=== PATIENT | male | born 1970 | race Two or more races ===

== ENCOUNTER 2018-03-18 07:01 | Emergency (ER) | payer OTHER ==
[~2018-03-18] VITALS: Ht 170.2 cm; Wt 96.6 kg
[~2018-03-18 07:01] MED LIST: ASPIRIN EC81 MG; CELECOXIB200 MG; FAMOTIDINE20 MG; GABAPENTIN300 MG; OMEPRAZOLE; RANITIDINE HCL300 MG
== END 2018-03-18 14:20 | disposition home or self-care (01) ==
LOC: ER 07:01
DX: M25.562 Pain in left knee (principal); M25.561 Pain in right knee; M25.572 Pain in left ankle and joints of left foot; M25.571 Pain in right ankle and joints of right foot

== ENCOUNTER 2018-03-25 11:48 | Outpatient (CLI) | payer OTHER | END 2018-03-25 12:45 | disposition home or self-care (01) | LOC: RAD 11:48 | DX: M17.0 Bilateral primary osteoarthritis of knee (principal) ==

== ENCOUNTER 2018-04-06 09:29 | Outpatient (CLI) | payer OTHER | END 2018-04-06 09:41 | disposition home or self-care (01) | LOC: MRI 09:29 | DX: M17.12 Unilateral primary osteoarthritis, left knee (principal); M23.222 Derangement of posterior horn of medial meniscus due to old tear or injury, left knee; M23.312 Other meniscus derangements, anterior horn of medial meniscus, left knee | CPT/HCPCS: 73721 ==

== ENCOUNTER 2018-07-16 10:10 | Outpatient (CLI) | payer OTHER | END 2018-07-16 10:19 | disposition home or self-care (01) | LOC: RAD 10:10 | DX: M17.12 Unilateral primary osteoarthritis, left knee (principal) ==

== ENCOUNTER 2018-08-18 07:51 | Outpatient (CLI) | payer OTHER | END 2018-08-18 10:55 | disposition home or self-care (01) | LOC: RAD 07:51 | DX: M54.5 Low back pain (principal); M54.16 Radiculopathy, lumbar region ==

== ENCOUNTER 2018-09-07 07:22 | Outpatient (CLI) | payer OTHER | END 2018-09-07 07:27 | disposition home or self-care (01) | LOC: RAD 07:22 | DX: M25.551 Pain in right hip (principal); M25.552 Pain in left hip ==

== ENCOUNTER 2020-11-29 09:51 | Outpatient (CLI) | payer OTHER | END 2020-11-29 09:59 | disposition home or self-care (01) | LOC: RAD 09:51 → EDBD 09:51 → RAD 09:59 | PROVIDERS: ATTEND General Practice | DX: R07.89 Other chest pain (principal); S23.41XA Sprain of ribs, initial encounter; Y99.8 Other external cause status ==

== ENCOUNTER → 2021-03-21 14:42 | Outpatient (CLI) | payer OTHER | END | disposition home or self-care (01) | LOC: RAD → EDBD 14:42 → RAD 14:42 | DX: M54.2 Cervicalgia (principal); M54.5 Low back pain; M99.02 Segmental and somatic dysfunction of thoracic region | CPT/HCPCS: 72148 ==

== ENCOUNTER 2021-04-22 10:24 | Outpatient (CLI) | payer OTHER | END 2021-04-22 10:34 | disposition home or self-care (01) | LOC: RAD 10:24 | PROVIDERS: ATTEND Student in an Organized Health Care Education/Training Program | DX: M51.37 Other intervertebral disc degeneration, lumbosacral region (principal); M54.5 Low back pain; M51.36 Other intervertebral disc degeneration, lumbar region; M47.812 Spondylosis without myelopathy or radiculopathy, cervical region; M54.12 Radiculopathy, cervical region ==

== ENCOUNTER → 2021-04-24 | Outpatient (CLI) | payer OTHER | END | disposition home or self-care (01) | LOC: MRI 08:31 | PROVIDERS: ATTEND Student in an Organized Health Care Education/Training Program | DX: M50.223 Other cervical disc displacement at C6-C7 level (principal); M47.812 Spondylosis without myelopathy or radiculopathy, cervical region; M47.22 Other spondylosis with radiculopathy, cervical region | CPT/HCPCS: 72141 ==

== ENCOUNTER 2022-04-22 07:40 | Outpatient (CLI) | payer OTHER | END 2022-04-22 07:45 | disposition home or self-care (01) | LOC: SONOGRAMA 07:40 | PROVIDERS: ATTEND Specialist/Technologist, Other Nephrology | DX: R10.9 Unspecified abdominal pain (principal); N18.30 Chronic kidney disease, stage 3 unspecified; R31.9 Hematuria, unspecified ==

== ENCOUNTER → 2023-05-18 | Outpatient (CLI) | payer OTHER | END | disposition home or self-care (01) | LOC: MRI 09:16 → EDBD 09:16 | DX: M51.26 Other intervertebral disc displacement, lumbar region (principal) | CPT/HCPCS: 72148 ==

== ENCOUNTER 2023-05-28 19:34 | Emergency (ER) | payer OTHER ==
[~2023-05-28] VITALS: Ht 172.7 cm; Wt 79.4 kg
[2023-05-28] MEDS ORDERED: CYMBALTA30 MG PO (19:40)
[2023-05-28] MEDS ORDERED: PERCOCET 5-3251 EACH PO (19:41)
== END 2023-05-28 21:43 | disposition home or self-care (01) ==
LOC: ER 19:34
DX: M54.2 Cervicalgia (principal)
CPT/HCPCS: 72040; 96372; 99283; J1885